=== PATIENT | female | born 1965 ===

== ENCOUNTER 2018-01-26 08:00 | Inpatient (IN) | payer OTHER ==
[~2018-01-26] VITALS: Ht 180.3 cm; Wt 77.1 kg
[2018-01-26] MEDS ORDERED: COZAAR50 MG PO (09:53)
[2018-01-26] MEDS ORDERED: WELLBUTRIN SR150 MG PO (09:53)
[2018-02-05] MEDS ORDERED: HYOSCYAMINE0.125 M1 SL (11:46)
[2018-02-05] MEDS ORDERED: OXYC1TAB9 PO (11:46)
== END 2018-02-05 13:18 | DRG 331 ==
LOC: SURG 01-31 07:20 → O/R 01-31 07:20 → SURH 01-31 08:00 → SURG 01-31 15:36 → SURH 01-31 16:15 → SURG 02-05 13:18
PROVIDERS: Surgery
PROC: 07TC4ZZ Resection of Pelvis Lymphatic, Percutaneous Endoscopic Approach (ICD-10-PCS; 2018-01-31)
PROC: 0DTF4ZZ Resection of Right Large Intestine, Percutaneous Endoscopic Approach (ICD-10-PCS; principal; 2018-01-31 16:15)
DX: D12.2 Benign neoplasm of ascending colon (principal); R59.0 Localized enlarged lymph nodes; I10 Essential (primary) hypertension